=== PATIENT | female | born 1960 | race Two or more races ===

== ENCOUNTER → 2016-06-19 | Day surgery (SDC) | payer OTHER ==
[~2016-06-19] VITALS: Ht 160 cm; Wt 75.7 kg
[2016-06-19] VITALS (11 sets, daily range): BP systolic 132–171; BP diastolic 74–99
[~2016-06-19] MED LIST: Bacitracin Oint 15gm Tube TOPIC ONE; Betadine 10% Oint 15gm TOPIC ONE; Bupivacaine 0.5% Inj 30 ml vial INJ ONE; Dexamethasone 4mg/ml vial ONE; Hydromorphone 0.5mg/0.5ml inj IVP PRN; Lidocaine 2% MPF 5ml Vial INJ ONE; Midazolam 2mg/2ml Inj ONE; NS Irrig 1000ml IRRIG ONE; Propofol 10mg/ml 20ml IV ONE; Sterile Water Irrig 1000ml IRRIG ONE; fentaNYL 100 mcg/2 mL IV ONE
--- NOTE | 2016-06-19 11:01 | Pre-Procedure Note/Attestation ---
Pre-Procedure Note/Attestation Complete Prior to Procedure Planned Procedure: right Procedure Narrative: RIGHT PERONEAL TENDON REPAIR Indications for Procedure Pre-Operative Diagnosis: RIGHT PERONEAL BREVIS TENDON TEAR Attestation I attest that I discussed the nature of the procedure; its benefits; risks and complications; and alternatives (and the risks and benefits of such alternatives ), prior to the procedure, with the patient (or the patient's legal traffic representative). I attest that, if there was a reasonable possibility of needing a blood transfusion, the patient (or the patient's legal traffic representative) was given the [facility] standardized written summary, pursuant to the Aly Silvio Blood Safety Act ([place] Health and Safety Code # 1645, as amended). I attest that I re-evaluated the patient just prior to the surgery and that there has been no change in the patient's H&P, except as documented below: CASSIA SALAZAR Jun 19, 2016 11:01
--- NOTE | 2016-06-19 11:37 | Anethesia Preoperative Eval ---
Anesthesia Pre-op PMH/ROS General Date of Evaluation: Jun 19, 2016 Time of Evaluation: 10:50 Anesthesiologist: JOHNNY ASA Score: ASA 2 Mallampati Score Class I : Soft palate, uvula, fauces, pillars visible Class II: Soft palate, uvula, fauces visible Class III: Soft palate, base of uvula visible Class IV: Only hard plate visible Mallampati Classification: Class II Surgeon: MARTIN Diagnosis: TORN OERONEAL TENDON Surgical Procedure: REPAIR TENDON Anesthesia History: none Family History: no anesthesia problems Allergies: Coded Allergies: No Known Allergies (Unverified , 06/19/16) Medications: see eMAR Past Medical History Cardiovascular: Reports: HTN Pulmonary: Denies: COPD, ANA, asthma, other Gastrointestinal/Genitourinary: Denies: CRI, ESRD, GERD, other Neurologic/Psychiatric: Denies: CVA, TIA, dementia, depression/anxiety, other Endocrine: Reports: DM HEENT: Denies: [place] (L), [place] (R), cataract (L), cataract (R), glaucoma, other Hematology/Immune: Denies: DVT, anemia, bleeding disorder, other Musculoskeletal/Integumentary: Denies: DDD, DJD, OA, RA, edema, other Other: obesity Anesthesia Pre-op Phys. Exam Physician Exam Last Vital Signs Date Time Temp Pulse Resp B/P Pulse Ox O2 Delivery O2 Flow Rate FiO2 06/19/16 10:39 97.6 70 20 160/90 98 Room Air Constitutional: NAD Neurologic: CN 2-12 intact Cardiovascular: RRR Respiratory: CTA Gastrointestinal: S/NT/ND Airway Exam Mallampati Score: Class II MO: full ROM: full Teeth: intact Dentures: no lower, no upper Anesthesia Pre-op A/P Studies Pre-op Studies: EKG Risk Assessment & Plan Assessment: ASA2 Plan: GA Status Change Before Surgery: No Pre-Antibiotics Drug: ANCEF Given Within 1 Hr of Incision: Yes Time Given: 11:15 MAYNOR TURNER M.D. Jun 19, 2016 11:37
--- NOTE | 2016-06-19 11:40 | Immediate Post-Op Evaluation ---
Immediate Post-Op Evalulation Immediate Post-Op Evalulation Procedure: REPAIR TORN PERONEAL TENDON R Date of Evaluation: Jun 19, 2016 Time of Evaluation: 14:00 IV Fluids: 890 Blood Products: 0 Estimated Blood Loss: 0 Urinary Output: -0 Blood Pressure Systolic: 163 Blood Pressure Diastolic: 99 Pulse Rate: 94 Respiratory Rate: 15 O2 Sat by Pulse Oximetry: 97 Temperature (Fahrenheit): 97.5 Pain Score (1-10): 1 Nausea: No Vomiting: No Complications 0 Patient Status: awake, patent, none Hydration Status: adequate Drug: ANCEF Given Within 1 Hr of Incision: Yes Time Given: 11:15 MAYNOR TURNER M.D. Jun 19, 2016 11:39
--- NOTE | 2016-06-19 11:41 | 48 Hour Post Anesthesia Eval ---
Post Anesthesia Evaluation Procedure: REPAIR TORN PERONEAL TENDON R Date of Evaluation: Jun 19, 2016 Time of Evaluation: 14:30 Blood Pressure Systolic: 132 Pulse Rate: 66 Respiratory Rate: 12 Temperature (Fahrenheit): 98 O2 Sat by Pulse Oximetry: 99 Airway: patent Nausea: No Vomiting: No Pain Intensity: 1 Hydration Status: adequate Cardiopulmonary Status: WNL Mental Status/LOC: patient returned to baseline Post-Anesthesia Complications: 0 Follow-up care needed: ready to discharge MAYNOR TURNER M.D. Jun 19, 2016 11:41
--- NOTE | 2016-06-19 12:52 | Brief Operative Note ---
Immediate Post Operative Note Operative Note Pre-op Diagnosis: RIGHT PERONEAL BREVIS TENDON TEAR Procedure: REPAIR OF PERONEOUS BREVIS AND LONGUS TENDON TEAR Post-op Diagnosis: same as pre-op plus - PERONEOUS LONGUS TENDON TEAR Surgeon: CASSIA SALAZAR Anesthesiologist: MAYNOR TURNER Anesthesia: general Specimen: none Complications: none Condition: stable Estimated Blood Loss: minimal - 50 Drains: none Implant(s) used?: Yes - SIMON SONIC ANCHOR, PARAGON PLACENTA GRAFT CASSIA SALAZAR Jun 19, 2016 12:52
--- NOTE | 2016-06-19 20:18 | Operative Note - Dictated ---
DATE OF OPERATION: 06/19/2016 PREOPERATIVE DIAGNOSIS: Peroneus brevis tendon tear, right ankle. POSTOPERATIVE DIAGNOSES: Peroneus brevis and peroneus longus tendon tear, right ankle. OPERATION PERFORMED: Repair of peroneus brevis and peroneus longus tendon tear, right ankle. SURGEON: Bobby Reeves D.P.M. ANESTHESIOLOGIST: Dr. Hernandez TYPE OF ANESTHESIA USED: General via LMA. OPERATION IN DETAIL: The patient was brought into the operating room and placed on OR table in supine position. Anesthesiologist administered general anesthesia via LMA as well as 2 g Ancef preoperatively. Right lower extremity was then prepped and draped in the usual aseptic and sterile manner. Attention was then directed to the posterior lateral aspect of the right ankle where curvilinear incision was made from approximately 3 cm proximal to the distal tip of the fibula travelling posterior to the lateral malleolus covering anteriorly once distal to the tip of the fibula. The incision was then carried down to layers being careful to avoid all vital structures and ligate any superficial bleeders as needed. The lateral retinaculum was incised and peroneal tendon sheaths were then opened revealing a long longitudinal tear of the peroneus brevis tendon extending approximately from one inch distal to the tip of the fibula to approximately three inches proximal to the tip of the fibula. The peroneus longus tendon was also identified and showed a small tear at the tip of the fibula. There was also an additional full thickness tear approximately one inch in length at the most proximal portion of the peroneus tendon injury. All fibrotic tissue was curetted out. All damage tissue was sharply debrided out and then peroneus brevis tendon was retubularized with 2-0 Ethibond and small tear was also repaired with 2-0 Ethibond. In the peroneus longus tendon due to just a small tear, the tendon was debrided and repaired with 4-0 Vicryl. The wound was then copiously irrigated with sterile saline. All synovitis was then also debrided out with curette and bovie and then tendon sheath was then repaired with 4-0 Vicryl. The lateral retinaculum was repaired with [employer] SonicAnchor, which was placed at the posterior distal tip of the malleolus. The incision was then closed in layers with 4-0 Vicryl and 4-0 nylon. Prior to closure, the wound was copiously irrigated with sterile saline. The patient also received 9 ml of 1:1 mixture of 1% Xylocaine and 0.5% Marcaine plain in regional block fashion to decrease the need of postoperative analgesia. Estimated blood loss less than 50 mL. The patient tolerated the anesthesia and procedure well and left the operating room with all vital signs stable. A sterile dressing consisting of bacitracin ointment, Adaptic, 4x4s, Jeffrey Coban was placed. The patient will also be placed into equalizer boots prior to discharge from hospital and will nonweightbearing on the right lower extremity. Bobby Reeves D.P.M. DR: Macy JOB#: [id number] CC:
[2016-06-26 08:03] VITALS: BP_DIAS 99
[2016-06-28 09:38] VITALS: BP_SYST 132
== END | disposition home or self-care (01) ==
LOC: SUR 09:17
DX: S86.311A Strain of muscle(s) and tendon(s) of peroneal muscle group at lower leg level, right leg, initial encounter (principal); W18.30XA Fall on same level, unspecified, initial encounter; Y92.481 Parking lot as the place of occurrence of the external cause; Y99.9 Unspecified external cause status; I10 Essential (primary) hypertension; E11.9 Type 2 diabetes mellitus without complications; Z79.84 Long term (current) use of oral hypoglycemic drugs; E78.00 Pure hypercholesterolemia, unspecified; E66.9 Obesity, unspecified; F17.200 Nicotine dependence, unspecified, uncomplicated
CPT/HCPCS: 28200; 82962; C1713; J0690; J1100; J2250; J2405; J2704; J3010; J3490; 94003; 94150